=== PATIENT | male | born 1965 | race Caucasian/White ===

== ENCOUNTER 2025-03-27 10:06 | Outpatient (REF) | payer MEDICARE, MEDICAID, SELFPAY ==
--- OUTSIDE RECORDS SUMMARY | 2024-10-04 04:30 | XMS_ITS ---
Author Organization [facility] Address [address] [place] [id number] Care Team Providers Care Healthcare Recruiter Name Role Phone Jose BARAJAS, Bladimir Primary Care Provider Florence Flores [phone] Medications Medication SIG (Take, Route, Frequency, Duration) Notes Start Date End Date Status Losartan Potassium 50 MG Oral; Duration: 90 Days Active Actemra 162 MG/0.9ML Subcutaneous; Durat ion: 84 Days Active Baby Aspirin Active Ibuprofen 800 MG Oral; Duration: 30 Days Active Omeprazole 40 MG Oral; Duration: 90 Days Active Atorvastatin Calcium 80 MG Oral; Duration: 90 Days Active Night Splint AFO - L1930 1 wear at rest; Duration: 30 days Active Encounters Encounter Location Date Provider Diagnosis [address] [id number] 10/04/2024 Florence Ramirez Plan Of Treatment No Information Progress Notes * Gorge FRANCISDOB:1965 (59 yo M)Acc No.[id number]:10/04/2024 Progress Notes Patient: Gorge ALVARADO Provider: Abner Ramirez DPM :1965 A ge:59 Y S ex:Male Date:10/04/2024 Address:[address] [place] [address], [address], [id number] Pcp:Bladimir Garcia MD Subjective: * Chief Complaints: * * Medical History: * Medications: T aking Baby Aspirin , Taking Ibuprofen 800 MG Tablet Oral , Taking Omeprazole 40 MG Capsule Delayed Release Oral , Taking Losartan Potassium 50 MG Tablet Oral , Taking Actemra 162 MG/0.9ML Solution Prefilled Syringe Subcutaneous , Taking Atorvastatin Calcium 80 MG Tablet Oral , Taking Night Splint AFO - L1930 1 wear at rest Objective: * Vitals: Assessment: Plan: * Treatment: * Images: * The named appointment provid er may or may not be the originator of this progress note, and it is not deemed complete until electronically signed by the appointment provider. Sign off status: Pending * Provider: Abner Ramirez DPM Date: 0 10/04/2024 Generated for Pedro lloyd/Julia/Danae on: 0 03/27/2025 11:09 AM EDT
--- OUTSIDE RECORDS SUMMARY | 2025-03-27 11:09 | XMS_ITS | Data Portability ---
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 REVIEW OF PRIOR EXTERNAL NOTES/RESULTS, ORDERING OF TEST(S) CATEGORY 2. 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) MDM MODERATE MUST MEET 2 OUT OF 3 ELEMENTS: PROBLEMS, DATA OR RISK ELEMENT 1: PROBLEMS ADDRESSED 1 OR MORE CHRONIC ILLNESS WITH EXACERBATION OR 2 OR MORE STABLE CHRONIC ILLNESSES OR 1 UNDIAGNOSED NEW PROBLEM OR 1 ACUTE ILLNESS W/SYMPTOMS OR 1 ACUTE COMPLICATED INJURY ELEMENT 2: DATA MUST MEET 1 OF 3 CATEGORIES CATEGORY 1: REVIEW OF PRIOR EXTERNAL NOTES, REVIEW OF RESULTS, ORDERING OF EACH TEST, ASSESSMENT REQUIRING INDEPENDENT HISTORIAN OR CATEGORY 2: INDEPENDENT INTERPRETATION OF TESTS BY ANOTHER PHYSICIAN OR SPECIALIST OR CATEGORY 3: DISCUSSION OF MGT OR TEST INTERPRETATION W/EXTERNAL PHYSICIAN OR SPECIALIST ELEMENT 3: RISK RISK OF COMPLICATIONS AND/OR MORBIDITY OR MORTALITY OF PATIENT MANAGEMENT PROVIDER MUST THOROUGHLY DOCUMENT EACH ELEMENT THAT IS COVERED Not available 10/13/2023 15:58:39 02/02/2024 02/02/2024 [id number] [place] [id number]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) MDM MODERATE MUST MEET 2 OUT OF 3 ELEMENTS: PROBLEMS, DATA OR RISK ELEMENT 1: PROBLEMS ADDRESSED 1 OR MORE CHRONIC ILLNESS WITH EXACERBATION OR 2 OR MORE STABLE CHRONIC ILLNESSES OR 1 UNDIAGNOSED NEW PROBLEM OR 1 ACUTE ILLNESS W/SYMPTOMS OR 1 ACUTE COMPLICATED INJURY ELEMENT 2: DATA MUST MEET 1 OF 3 CATEGORIES CATEGORY 1: REVIEW OF PRIOR EXTERNAL NOTES, REVIEW OF RESULTS, ORDERING OF EACH TEST, ASSESSMENT REQUIRING INDEPENDENT HISTORIAN OR CATEGORY 2: INDEPENDENT INTERPRETATION OF TESTS BY ANOTHER PHYSICIAN OR SPECIALIST OR CATEGORY 3: DISCUSSION OF MGT OR TEST INTERPRETATION W/EXTERNAL PHYSICIAN OR SPECIALIST ELEMENT 3: RISK RISK OF COMPLICATIONS AND/OR MORBIDITY OR MORTALITY OF PATIENT MANAGEMENT PROVIDER MUST THOROUGHLY DOCUMENT EACH ELEMENT THAT IS COVERED Not available 02/02/2024 14:23:07 12/13/2024 12/13/2024 . Not available 10/2024 15:15:02 03/27/2025 03/27/2025 Patient presente d to office today for their Medicare Annual Wellness Visit. Education was provided on healthy nutrition, including a diet rich in fruits and vegetables, minimizing simple carbohydrates, salt, and saturated fats. Encouraged regular cardiovascular exercise such as walking at least 30 minutes daily, 5 times per week. Emphasized preventive health measures and educated pt on fall prevention and community-based lifestyle interventions to help reduce health risks and promote healthy living. Not available 03/27/2025 09:41:00 Plan of Treatment Reminders Order Date Submit Date Provider Last Modified By Organization Details Last Modified Time Details Appointments MEDICARE ANNUAL WELLNESS 2024 09:30A M DR HODGE Not available Not available Not available Lab CMP, serum or plasma 2024 025 [facility], [address] [place] [address], [place], [address], 03/27/2025 09:44:37 CBC w/ auto diff 2024 025 [facility], [address] [facility], [place], [address], 03/27/2025 09:44:37 PSA, serum or plasma 2024 [facility], [address] [place] [address], [id number], 03/27/2025 09:44:37 lipid panel, blood 2024 [facility], [address] [place] [address], [id number], 03/27/2025 09:44:37 vitamin D, 25-hydrox y, total, serum 2024 [facility], [address] [place] [address], [address], 03/27/2025 09:44:37 testoster one, total, serum 2024 [facility], [address] [place] [address], [address], 03/27/2025 09:46:54 vitamin B12 + folate, serum or blood 2024 025 [facility], [address] [place] [address], [address], 03/27/2025 09:46:54 TSH, serum or plasma 2024 025 [facility], [address] [place] [address], [address], 03/27/2025 09:46:54 CMP, serum or plasma 2023 024 [facility], [address] [place] [address], [address], 10/13/2023 16:04:12 CBC 2023 024 [facility], [address] [place] [address], [address], 10/13/2023 16:04:12 lipid panel, blood 2023 024 [facility], [address] [facility], [place], [address], 10/13/2023 16:04:12 testoster one, total, serum 2023 024 [facility], [address] [place] [address], [place], [address], 10/13/2023 16:04:12 CMP, serum or plasma 2022 023 [facility], [address] [place] [address], [place], [address], 09/08/2023 16:15:29 lipid panel, blood 2022 023 [facility], [address] [place] [address], [address], 09/08/2023 16:15:29 CBC 2022 023 [facility], [address] [place] [address], [place], [address], 09/08/2023 16:15:30 PSA, serum or plasma 2022 023 [facility], [address] [place] [address], [id number], 09/08/2023 16:15:30 testoster one, total, serum 2022 023 [facility], [address] [place] [address], [address], 09/08/2023 16:15:29 Referral podiatris t referral 2023 024 [email or web address] Not available 03/01/2024 08:27:35 Procedures None recorded. Surgeries None recorded. Imaging CT, abdomen + pelvis, w/o contrast 2023 024 [email or web address] [facility], [address], [place], [address], 10/19/2023 10:56:34 Medication Orders azithromy medardo 250 mg tablet 2024 025 [id number], [address] [place], [address], 03/27/2025 09:47:57 atorvasta tin 80 mg tablet 2023 024 [id number], [address] [place], [address], 10/13/2023 16:02:58 Patient TargetsNo targets recorded. Patient Instructions Encounter Date Encounter Id Patient Instructions Last Modified By Organization Details Last Modified Time 02/02/2024 [id number] high blood pressure: care instructions Not available 02/02/2024 14:23:31 learning about high blood pressure Not available 02/02/2024 14:23:31 hand arthritis: exercises Not available 02/02/2024 14:23:31 03/27/2025 [id number] pulse oximetry* BRET Not available 03/27/2025 10:59:28 Discussed and explained advance directives such as standard forms to the . Face to face discussion lasted for a duration of ___ minutes. 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 for Plan tar fasciitis of right foot please provide patient with cortisone injection for persistant severe plantar fasciitis Referring Physician: Bladimir Hodge, Internal Medicine, Encounter Date: 02/02/2024 Results Created Date Observation Date Name Description Value Unit Range Abnormal Flag Note LastModifiedBy Organization Detail LastModifiedTime 03/27/20 25 03/27/2025 pulse oxime try* Result 98 Not Available [facility] [address] [facility] [address], [place], [address], 03/21/2025 15:44:44 11/05/19 24 11/05/2023 CT, abdom en + pelvi s, w/o contr ast No observ ation record ed. [email or web address] [facility] [address] [facility], [place], [address], 11/09/2023 09:46:17 Result Notes None recorded. Problems Name Problem SNOMED Code Status Onset Date Resolution Date Notes Provider Name and Address Organization Details Recorded Time Chronic eczema 44218464 Active 2018 Not Available [facility] 4 00:26:17 Obstructi ve sleep apnea syndrome 12810722 Active 2019 Not Available [facility] 4 00:26:18 Osteoarth ritis of joint of hand 52953190 Active 2019 Melinda lowery [facility] 5 11:37:49 Thalamic infarctio n 805200700 Active 2020 Melinda lowery [facility] 5 11:37:49 Essential hypertens ion 38397046 Active 2022 Melinda lowery [facility] 5 11:37:49 Erectile dysfuncti on 803448256 Active 2022 Melinda lowery [facility] 5 11:37:49 Right flank pain 084666568 Active 2023 Melinda lowery [facility] 5 11:37:52 Plantar fasciitis of right foot 211058682037 52870 Active 2023 Melinda lowery [facility] 5 11:37:49 Fatigue 07252813 Active 2024 Bladimir Hodge, [address] [place] [address], [phone], [facility] 5 09:44:11 Subacute cough Active 2024 Bladimir Hodge DO [address] [place] [address], [phone], [facility] 5 09:46:44 History of cerebrova scular accident 353006142 Active 2017 Not Available [facility] 4 00:26:17 Vasculiti s 40893772 Active 2017 Not Available [facility] 4 00:26:17 Hypogonad ism 55596868 Active 2017 Melinda Rene beverley [facility] [place] [facility] 5 11:37:49 Problem Notes None recorded. Medical Equipment None Reported. Allergies Allergen ID Allergen Name Allergen Category Reaction Reaction Severity Criticality Documentation Date Start Date Code Code System Note Provider Name and Address Organization Details Recorded Time 1427 acetamino phen / hydrocodo ne medicatio n headache Not available Not available 02/01/2018 29219 2 RxNorm Veronica Igel beverley [facility] [place] [facility] 8 16:38:37 Medications Name Sig Start Date Stop Date Status Note LastModified by Organization Details LastModified Time losartan 50 mg tablet TAKE 1 TABLET BY MOUTH EVERY DAY active Not Available Not Available No t Available cyclobenzap rine 10 mg tablet TAKE 1 TABLET BY MOUTH TWICE A DAY NEEDED active Not Available Not Available No t Available atorvastati n 40 mg tablet 07/14 completed Not Available Not Available Not Available atorvastati n 80 mg tablet TAKE 1 TABLET BY MOUTH EVERY DAY WITH MEALS active Not Available Not Available No t Available prednisone 10 mg tablet TAKE 5 TABLETS BY MOUTH DAILY FOR 5 DAYS 12/13 completed Not Available Not Available Not Available doxycycline hyclate 100 mg capsule 08/01 completed Not Available Not Available Not Available sildenafil 50 mg tablet TAKE 1 TABLET BY MOUTH EVERY DAY FOR 30 DAYS active Not Available Not Available No t Available azithromyci n 250 mg tablet TAKE 2 TABLETS (500 MG) BY ORAL ROUTE ONCE DAILY FOR 1 DAY THEN 1 TABLET (250 MG) BY ORAL ROUTE ONCE DAILY FOR 4 DAYS 2024 active Not Available Not Available Not Avai lable ibuprofen 800 mg tablet TAKE 1 TABLET BY MOUTH THREE TIMES A DAY NEEDED active Not Available Not Available No t Available ofloxacin 0.3 % eye drops INSTILL 1 DROP IN LEFT EYE FOUR TIMES A DAY START 6 HOURS AFTER SURGERY AND USE FOR 7 DAYS active Not Available Not Available No t Available sulfamethox azole 400 mg-trimetho prim 80 mg tablet Take 1 tablet(s) by oral route. 05/09 completed Not Available Not Available Not Available methylpheni date 10 mg tablet Take 1 tablet every day by oral route for 30 days. 03/26 completed Not Available Not Available Not Available meloxicam 15 mg tablet TAKE 1 TABLET EVERY DAY BY ORAL ROUTE WITH MEAL(S) FOR 30 DAYS. active Not Available Not Available No t Available ondansetron HCl 4 mg tablet TAKE 1 TABLET BY MOUTH EVERY 8 HOURS NEEDED FOR NAUSEA/VO MITING. active Not Available Not Available No t Available methylpheni date 5 mg tablet Take 1 tablet every day by oral route. 04/29 completed Not Available Not Available Not Available prednisone 20 mg tablet TAKE 2 TABLETS BY MOUTH EVERY DAY FOR 5 DAYS 12/13 completed Not Available Not Available Not Available penicillin V potassium 500 mg tablet TAKE 2 TABLETS FIRST TIME ONLY THEN 1 TABLET EVERY 6 HOURS UNTIL FINISHED 07/14 completed Not Available Not Available Not Available ciprofloxac in 500 mg tablet Take 1 tablet twice a day by oral route for 10 days. 06/28 completed Not Available Not Available Not Available sulfamethox azole 800 mg-trimetho prim 160 mg tablet TAKE 1 TABLET BY MOUTH TWICE A DAY 06/12 completed Not Available Not Available Not Available omeprazole 40 mg capsule,del ayed release TAKE 1 CAPSULE BY MOUTH EVERY DAY active Not Available Not Available No t Available aspirin 81 mg tablet,jason yed release TAKE 1 TABLET BY MOUTH EVERY DAY active Not Available Not Available No t Available doxycycline monohydrate 100 mg tablet TAKE 1 TABLET BY MOUTH TWICE A DAY FOR 7 DAYS 12/13 completed Not Available Not Available Not Available ketorolac 0.5 % eye drops INSTILL 1 DROP IN LEFT EYE FOUR TIMES A DAY START 6 HRS AFTER SURGERY AND USE UNTIL BOTTLE IS EMPTY active Not Available Not Available No t Available mycophenola te mofetil 500 mg tablet Take 3 tablets twice a day by oral route. 05/09 completed Not Available Not Available Not Available prednisolon e acetate 1 % eye drops,suspe nsion INSTILL 1 DROP IN LEFT EYE FOUR TIMES A DAY START 6 HOURS AFTER SURGERY AND USE UNTIL EMPTY active Not Available Not Available No t Available gentamicin 0.3 % eye drops INSTILL 1 DROP INTO AFFECTED EYE(S) BY OPHTHALMI C ROUTE EVERY 4 HOURS 11/04 completed Not Available Not Available Not Available benzonatate 100 mg capsule TAKE 1 CAPSULE BY MOUTH THREE TIMES A DAY active Not Available Not Available No t Available triamcinolo ne acetonide 40 mg/mL suspension for injection TAKE 40 MG EVERY MONTH BY INJECTION ROUTE NEEDED FOR 30 DAYS. 02/02 completed Not Available Not Available Not Available flunisolide 25 mcg (0.025 %) nasal spray active Not Available Not Available Not Available prednisone 2.5 mg tablet 11/04 completed Not Available Not Available Not Available cephalexin 500 mg capsule TAKE 1 CAPSULE BY MOUTH TWICE A DAY 06/12 completed Not Available Not Available Not Available mometasone 50 mcg/actuati on nasal spray Rutledge 2 sprays every day by intranasa l route for 30 days. 2020 active Not Available Not Available Not Avai lable aspirin 81 mg chewable tablet Chew 1 tablet every day by oral route. 05/09 completed Not Available Not Available Not Available Levaquin 500 mg tablet Take 1 tablet every 24 hours by oral route for 10 days. 11/04 completed Not Available Not Available Not Available ibuprofen 600 mg tablet TAKE 1 TABLET BY MOUTH TWICE A DAY NEEDED FOR PAIN active Not Available Not Available No t Available albuterol sulfate HFA 90 mcg/actuati on aerosol inhaler TAKE 2 PUFFS INHALED EVERY 4 TO 6 HOURS NEEDED FOR SHORTNESS OF BREATH active Not Available Not Available No t Available bromphenira mine-pseudo ephedrine-D M 2 mg-30 mg-10 mg/5 mL oral syrup TAKE 10 ML BY MOUTH EVERY 6 HOURS FOR 5 DAYS 12/13 completed Not Available Not Available Not Available fluticasone propionate 50 mcg/actuati on nasal spray,suspe nsion SPRAY 2 SPRAYS INTO EACH NOSTRIL EVERY DAY FOR 30 DAYS active Not Available Not Available No t Available lisinopril 2.5 mg tablet TAKE 3 TABLETS BY MOUTH DAILY. 05/10 completed Not Available Not Available Not Available amoxicillin 875 mg-potassiu m clavulanate 125 mg tablet TAKE 1 TABLET BY MOUTH TWICE A DAY FOR 14 DAYS 12/13 completed Not Available Not Available Not Available oxycodone 5 mg tablet TAKE 1 TABLET BY MOUTH EVERY 4 HOURS NEEDED FOR PAIN. active Not Available Not Available No t Available tadalafil 10 mg tablet Take 1 tablet every day by oral route for 30 days. 2022 active Not Available Not Available Not Avai lable diclofenac 1 % topical gel APPLY 2 GRAMS TO THE AFFECTED AREA(S) BY TOPICAL ROUTE 4 TIMES PER DAY 07/14 completed Not Available Not Available Not Available Actemra 05/09 completed Not Available Not Available Not Available testosteron e 20.25 mg/1.25 gram per pump act.(1.62 %) transdermal gel APPLY 2 PUMPS DAILY active Not Available Not Available No t Available AndroGel 1.62 % (40.5 mg/2.5 gram) transdermal gel packet 05/09 completed Not Available Not Available Not Available Actemra 162 mg/0.9 mL subcutaneou s syringe Inject 1 mL every 2 weeks by sub-q route for 28 days. active Not Available Not Available No t Available Vitals Date Recorded Body height Body mass index (BMI) Body weight Heart rate Oxygen saturation Oxygen saturation in Arterial blood by Pulse oximetry Systolic And Diastolic Provider Name and Address Organization Details Last Updated DateTime 4 182.88 cm 35.1 kg/m2 570053. 42 g 85 /min 96 % 96 % 128/78 mm[Hg] Shoshana Sanchez [facility] [place] [facility] 4 15:35:31 Date Recorded Body height Body mass index (BMI) Body weight Heart rate Oxygen saturation Oxygen saturation in Arterial blood by Pulse oximetry Systolic And Diastolic Provider Name and Address Organization Details Last Updated DateTime 5 182.88 cm 35.7 kg/m2 657855. 79 g 75 /min 94 % 94 % 124/78 mm[Hg] Melinda Rene [facility] [place] [facility] 5 15:03:25 Date Recorded Body height Body mass index (BMI) Body weight Heart rate Respiratory rate Oxygen saturation Oxygen saturation in Arterial blood by Pulse oximetry Systolic And Diastolic Provider Name and Address Organization Details Last Updated DateTime 4 182.88 cm 35.8 kg/m2 692114. 39 g 84 /min 18 /min 96 % 96 % 138/82 mm[Hg] Tyrese Campo [facility] [place] [facility] 4 13:45:11 Date Recorded Body height Body mass index (BMI) Body weight Heart rate Oxygen saturation Oxygen saturation in Arterial blood by Pulse oximetry Systolic And Diastolic Provider Name and Address Organization Details Last Updated DateTime 5 182.88 cm 35.7 kg/m2 091352. 79 g 70 /min 98 % 98 % 120/70 mm[Hg] Shoshana Sanchez [facility] [place] [facility] 09:23:24 Social History Question Answer Notes LastModified by Organizat ion Details LastModified Time Tobacco Smoking Status Former Smoker Bladimir Goldman Gertrudekyler, DO [address] [place] [address], [phone], [facility] 07/14/2021 10:01:53 What Was The Date Of Your Most Recent Tobacco Screening? 03/27/2025 [email or web address] Information not available 03/27/2025 Sex: Unknown Functional Status None recorded. Mental Status None recorded. Family History Nothing Reported. Medical History No medical history recorded. Past Encounters Encounter ID Performer Location Encounter Start Date Encounter Closed Date Diagnosis/Indication Diagnosis SNOMED-CT Code Diagnosis ICD10 Code Diagnosis Note [id number] Bladimir GongLit Hodge [facility] [address] [place] [address],[place] [address] 02/01/2018 16:08:20 02/01/2018 17:09:14 Pneumonia 382078504 J18.9 starting and will start levaquin and run for 10 days Vasculitis 45148645 I77. 6 has bow maker production vasculitis to be started on tocilizuma b/ actemra [id number] Bladimir Hodge [facility] [address] [place] [address],[place] [address] 02/15/2018 14:43:47 02/15/2018 16:31:20 Hypogonadism 18053821 E29.1 restart androgel 2packets daily rechk level in 1 month Cough 03339455 R05 finally improved no further tx needed [id number] Bladimir Hodge [facility] [address] [facility],[place] [address] 03/30/2018 16:07:04 04/01/2018 08:31:23 Hypogonadism 16559590 E29.1 chk level in 1 month testosat this week [id number] Bladimir Hodge [facility] [address] [facility],[place] [address] 04/29/2018 16:01:02 05/02/2018 09:23:26 Eczema 94462057 L30.9 given 62mg of solumedrol IM well tami, [id number] Bladimir Hodge [facility] [address] [facility] [address],[place] [facility] [place] [address] 05/31/2018 15:25:45 05/31/2018 16:41:22 Hypogonadism 43460247 E29.1 chk level in today await result as last androgel was rejected [id number] Bladimir Goldman Jose [facility] [address] [facility] [address],[place] [facility] [place] [address] 11/04/2018 12:14:36 11/04/2018 14:08:00 Chronic eczema 28465146 L30.9 will order the kenalog inj and a letter is written for it for [place]izat [place] [id number] Bladimir GongLit Gertrudekyler [facility] [address] [facility],[place] [address] 05/09/2019 14:08:14 05/09/2019 14:47:26 Fatigue 77909487 R53.83 [id number] Bladimir Loredokyler [facility] [address] [facility],[place] [facility] [address] 03/26/2020 10:00:10 03/26/2020 11:18:58 Fatigue 36458419 R53.83 Starts after lunch and resolves within a few hours Suggest machinist automotive lunch and will run labs Obstructiv e sleep apnea syndrome 66015010 G47.33 Here for CPAP review and ordering of new equipment Doing very well with CPAP using every day and has done fantastic Vitamin D deficiency 347 15032 E55.9 Was 8 last year. 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 Screening for malignant neoplasm of colon 503057930 Z12.11 will need referral for colonoscop y for screening has colon cancer with uncle [id number] Bladimir Hodge [facility] [address] [facility], [place] [address] 09/25/2020 09:22:47 09/25/2020 10:10:10 Bilateral knee pain 3309285835 7828690 M25.562 bilateral knee pain, started up after traumatic injury due to fall will start with XR and see what anatomical ly is happening that may be causing the pain he will continue to use the diclofenac gel topically and start using it before bed History of cerebrovascular accident 614117160 Z86.73 patient is already on ibuprofen 800 mg PRN the patient is also using diclofenac gel given hx of CVA, do not want to add to many medication s that have blood thinning potential on top of eachother at this time [id number] Bladimir Hodge DO [facility] [address] [facility],[place] [address] 06/02/2021 08:32:44 06/03/2021 10:32:03 Vasculitis 37020873 I77.6 had and is now reasolved no longer on any meds will get a final MRI soonto be started on tocilizuma b/ actemra Acute sinusitis 05457143 J01.90 getting worse present for 6 weeks Low back pain 071663040 M54.5 will xray ;his low back as he is now having pain radiating down his leg [id number] Bladimir Hodge [facility] [address] [facility], [place] [address] 07/14/2021 09:56:09 07/14/2021 10:33:23 Basal cell carcinoma of ear 070559765 C44.219 Plantar fa sciitis of right foot 2690340052 8438126 M72.2 severe pain and present for several years Thalamic infarction 4272 42962 I63.89 seeing neuro in [facility] next weds will ask to be put back on actemra Insomnia 614031161 G47.0 1 [id number] Bladimir Hodge [facility] [facility] [address] [facility] [address] [address] [facility] [place] [address] 04/05/2023 15:28:37 04/05/2023 16:25:37 Thalamic infarction [id number] I63.89 stable now Vasculitis 51224192 I77. 6 had and is now resolved no longer on any meds will get a final MRI soonstable Essential hypertension 33448007 I10 [id number] Bladimir Hodge [facility] [address] [facility] [address] [address] 05/10/2023 16:17:44 05/11/2023 08:56:44 Essential hypertension 20552172 I10 bp is doing fantastic Screening for malignant neoplasm of colon 977908320 Z12.11 will need referral for colonoscop y for screening has colon cancer with uncle Erectile dysfunction [id number] 827888 F52.21 [id number] Bladimir Hodge [facility] [address] [facility] [address] [address] 09/08/2023 09:41:24 09/10/2023 12:13:56 History of cerebrovascular accident [id number] Z86.73 Doing very well no recurrence and is behaving relates has joined a gym and needs a letter stating he is stable to attend Vasculitis [id number] I77. 6 had and is now resolved no longer on any medsstable per specialist s has one followup next year Essential hypertension 85406293 I10 bp is doing fantastic Hypogonadism 96601057 E2 9.1 chk level in today needs rx for testost gel 1.62 % Thalamic infarction 4272 87343 I63.89 stable now [id number] Bladimir Hodge [facility] Internal [facility] [address] [facility] [address] [address] [facility] [place] [address] 10/13/2023 15:27:24 10/13/2023 16:49:54 Vasculitis 92216403 I77.6 had and is now resolved no longer on any medsstable per specialist s has one followup next year Essential hypertension 27298533 I10 bp is doing fantastic Hypogonadism 90980312 E2 9.1 chk level in today needs rx for testost gel 1.62 % History of cerebrovascular accident 030607199 Z86.73 Doing very well no recurrence and is behaving relates has joined a gym and needs a letter stating he is stable to attend Right flank pain 5195962 09 R10.9 could be multiple reasons for the pain but is certainly an issue [id number] Bladimir Hodge [facility] Internal Medicine [address] [facility] [address] 02/02/2024 13:29:22 02/02/2024 14:53:59 Plantar fasciitis of right foot [id number] 9680992 M72.2 severe pain and present for several years Essential hypertension 10805015 I10 bp is doing fantastic Osteoarthr itis of joint of hand 70988845 M19.049 Thalamic infarction 4272 50126 I63.89 stable now [id number] Bladimir Hodge [facility] Internal Medicine [address] [facility],[place] [address] 12/13/2024 14:44:51 12/13/2024 15:25:15 Pre-surgery evaluation 767076046 Z01.818 Per the 2017 ACC (revised ) cardiac risk stratifica tion , this patient is deemed a low risk for the proposed leg surgery for his chronic plantar fasciitis pending the review of his ekg. Plantar fa sciitis of right foot [id number] 5787577 M72.2 severe pain and present for several years [id number] Bladimir Hodge [facility] Internal Medicine [address] [facility], [place] [address] 03/27/2025 09:17:45 03/27/2025 09:56:24 Screening for cardiovascular system disease 497259470 Z13.6 Screening for malignant neoplasm of colon 664769831 Z12.11 will need referral for colonoscop y for screening has colon cancer with uncle Essential hypertension 29740128 I10 bp is doing fantastic Obstructiv e sleep apnea syndrome 02658450 G47.33 Here for CPAP review and ordering of new equipment Doing very well with CPAP using every day and has done fantastic Well adult 364234880 Z00 .00 Fatigue 38675308 R53.82 Starts after lunch and resolves within a few hours Suggest [employer] lunch and will run labs Subacute cough 511314170 0 27478594 R05.2 Health Concerns Section Related Observation LastModified by Organization Detai ls LastModified Time None Recorded Concern Status LastModified by Organization Details LastModified Time None Recorded Advance Directives Directive None Recorded Payers Insurance Date Sequence Insurance Name Policy Number Policy Hubbard Covered Member ID Hubbard Member ID Guarantor Name 03/24/2025 2 [place] [facility] Gorge Francis [id number] Gorge Francis 12/13/2024 2 [place] PRIOR TO 2022 - [facility] (MEDICAID) Gorge Francis [id number] Gorge Francis 03/24/2025 1 [place] [employer] Gorge Francis [id number] Gorge Francis Notes Date Note Type Note Provider Name and Address Organization Details Recorded Time 3 text/htm l Care Management - HypertensionReported bypatient.Self Care:not under emotional stress Severity:symptoms are improving; does not interfere with daily activities Associated Symptoms:no dizziness; no lightheadedness; no chest pain; no shortness of breath; no palpitations; no edema; no calf muscle cramps; no blurred vision; no confusion; no headaches; no fatigue patient is evaluated via tele/video assessment per patient consentduring current pandemic feeling good sleep is okstates needs a letter to be able to go to gymno cp no sobsleep is goodhome bp is good relates that he has a little bit of numbness in his arm legs Bladimir Hodge DO [address] [place], [address], [facility] 09/08/2023 16:14:25 4 text/htm l here for rechkdoing well and is overall stable but has noted a prob with pain to in the left upper quad and left upper flankhas been hurting months no injury but coughs a lot relatesthat ibuprofen is sl helpful no fevers no dysuriahas been to ER and urine neg creat nland was disch without issue Bladimir Hodge DO [address] [place], [address], [facility] 10/13/2023 16:05:53 4 text/htm l is in a lot of discomfort to his right foor at bottom of his footvery sore with any weight bearinghe has had some improvemnt with wearing insertshas had extensive work up for this with ortho doing ct and nct both were negative for nerve prob i strongly feel this is plantar fasciitis Bladimir Hodge DO [address] [place], [address], [facility] 02/02/2024 14:23:36 5 text/htm l Pre-OpReported bypatient.Risk Factorsno cognitive impairment; no functional impairment; no malnutrition; no frailty; able to climb a flight of stairs (exercise capacity>4 METS); no obstructive sleep apnea; non-smoker; no alcohol misuse; no illicit drug use; no chronic cardiopulmonary condition; not obese Anesthesia hx:no hx of anesthesia complications; no allergy to anesthetic agents; no family history of anesthesia complications Functional Ability:able to walk up stairs; able to perform heavy work around the house; no difficulty walking up hills; able to walk 4 mph here for rechk Bladimir Hodge DO [address] [place], [address], [facility] 12/13/2024 15:18:04 5 text/htm l here for rechknot doing much and is not exercising Bladimir Hodge DO [address] [place], [address], [facility] 03/27/2025 09:48:49
[2025-03-27 13:51] LABS: MANUAL DIFF FLAG NO
[2025-03-27 14:06] LABS: Hematocrit 43.3 % (42.0-52.0); Hemoglobin 15.2 g/dl (14.0-18.0); Imm Gran Abs Auto 0.01 X10*3/uL (0.00-0.03); Imm Gran Pct Auto 0.2 % (0.0-0.4); Lymphocytes Absolute Auto 2.7 X10*3/uL (1.2-4.9); Mean Corpuscular HGB Conc 35.1 g/dl (31.0-36.0); Mean Corpuscular Hemoglobin 31.8 pg (27.0-33.0); Mean Corpuscular Volume 90.6 fL (80.0-98.0); NRBC Abs Auto 0.000 X10*3/uL (0.0-0.012); NRBC Pct Auto 0.0 /100WBC (0.0-0.2); Platelet Count 162 X10*3/uL (160-400); Red Blood Count 4.78 X10*6/uL (4.60-5.80); White Blood Count 5.7 X10*3/uL (4.8-10.8)
[2025-03-27 14:39] LABS: Prostate Specific Antigen 0.44 ng/mL (<0.05-4.0)
[2025-03-27 14:45] LABS: Thyroid Stimulating Hormone 2.32 uIU/mL (0.32-4.0)
[2025-03-27 14:48] LABS: Anion Gap 14 (12-20)
[2025-03-27 14:52] LABS: Folate 11.0 ng/mL (> or = 4.0); Vitamin B12 521 pg/mL (200-900)
[2025-03-27 14:53] LABS: Alanine Aminotransferase 60 U/L (0-40); Albumin Level 4.6 g/dL (3.5-5.0); Alkaline Phosphatase 75 U/L (39-117); Aspartate Amino Transferase 36 U/L (5-37); Blood Urea Nitrogen 11 mg/dL (9-16); Calcium 9.7 mg/dL (8.4-10.2); Carbon Dioxide 24 mmol/L (22-29); Chloride 107 mmol/L (96-108); Cholesterol 137 mg/dL (<200); Estimated Glomerular Filt Rate > 60; HDL Cholesterol 39 mg/dL (>40); Potassium 3.9 mmol/L (3.3-5.1); Sodium 141 mmol/L (135-145); Total Protein 6.8 g/dL (6.5-8.0); Triglycerides 242 mg/dL (<150)
== END 2025-03-27 10:07 | disposition home or self-care (01) ==
LOC: HO.MANLDS 10:06
PROVIDERS: Visit Provider Internal Medicine
DX: Z00.00 Encounter for general adult medical examination without abnormal findings (principal); R53.82 Chronic fatigue, unspecified; Z12.5 Encounter for screening for malignant neoplasm of prostate
CPT/HCPCS: 36415; 80053; 80061; 82306; 82607; 82746; 84153; 84403; 84443; 85025